=== PATIENT | female | born 1985 | race Caucasian/White ===

== ENCOUNTER 2018-02-06 08:00 | Outpatient (CLI) | payer MEDICAID | END 2018-02-06 23:59 | disposition home or self-care (01) | LOC: LAB.R 08:00 | PROVIDERS: ATTEND Nurse Practitioner Obstetrics & Gynecology | DX: N76.0 Acute vaginitis (principal) | CPT/HCPCS: 87480; 87510; 87660 ==

== ENCOUNTER 2018-03-15 16:32 | Outpatient (CLI) | payer MEDICAID ==
--- NOTE | 2018-03-16 11:57 | Ultrasound Report ---
Reason: TEST POSITIVE Procedure Date: 03/15/2018 Accession Number: [id number] / [id number] Procedure: US - OB First Trimester CPT Code: FULL RESULT: EXAM: FIRST TRIMESTER OBSTETRIC ULTRASOUND (Less than 11 weeks) EXAM DATE: 03/15/2018 05:16 PM. CLINICAL HISTORY: TEST POSITIVE. LMP: 01/26/2018. COMPARISONS: None. TECHNIQUE: Transabdominal and transvaginal ultrasound examination with static image documentation. CLINICAL DATES: EGA 6 weeks 6 days with GRAYSON 11/02/2018 based on LMP. ASSESSMENT: Gestational Sac: Single intrauterine. Embryo: CRL (crown-rump length) 2.7 mm = 5 weeks 6 days. Cardiac activity: 104 beats per minute. Yolk sac: 3.4 mm. Amniotic fluid: Not accurately assessed at this gestational age. Early placenta: Not visible at this gestational age. Other: No perigestational fluid collection demonstrated. MATERNAL STRUCTURES: Uterus: Anteverted. Unremarkable. Cervix: Closed. Right Ovary/Adnexa: The ovary measures 3 x 2.6 x 1.5 cm, volume 6.1 cc. Unremarkable. Left Ovary/Adnexa: The ovary measures 2.4 x 2.6 x 2.1 cm, volume 6.8 cc. Unremarkable. Free Fluid: None. Other: None. IMPRESSION: 1. Single viable intrauterine at EGA 5 weeks 6 days with GRAYSON 11/09/2018 based on crown-rump length, which is concordant (exactly 7 days) with clinical dates. 2. Assigned dating is GRAYSON 11/02/2018 based on LMP. 3. Both ovaries and adnexa are normal. RADIA
== END 2018-03-15 16:33 | disposition home or self-care (01) ==
LOC: DI 16:32
PROVIDERS: ATTEND Registered Nurse
DX: Z32.01 Encounter for pregnancy test, result positive (principal)
CPT/HCPCS: 76801; 76817

== ENCOUNTER 2018-04-06 18:44 | Emergency (ER) | payer MEDICAID ==
--- NOTE | 2018-04-06 18:59 | ED Physician Documentation ---
History of Present Illness - Stated complaint Stated Complaint: FEMALE - Chief complaint Chief Complaint: General - History obtained from History obtained from: Patient - History of Present Illness Timing: Today (G one P0 at 8 weeks 6 days gestation presents with vaginal spotting for the last few days and heavier bleeding tonight without cramping or pain. Her dates were confirmed by ultrasound about 2 weeks ago in the clinic where heart tones were noted. Blood type is unknown.) Review of Systems Ten Systems: 10 systems reviewed and negative Constitutional: denies: Fever, Chills GI: denies: Abdominal Pain, Nausea, Vomiting : denies: Dysuria, Frequency PD PAST MEDICAL HISTORY - Present Medications Home Medications: Ambulatory Orders Medication Instructions Recorded Confirmed Levothyroxine Sodium [Synthroid] 25 mcg PO QDAC 04/06/18 04/06/18 - Allergies Allergies/Adverse Reactions: Allergies Allergy/AdvReac Type Severity Reaction Status Date / Time codeine Allergy Nausea Verified 04/06/18 18:52 PD ED PE NORMAL - Vitals Vital signs reviewed: Yes - General General: Alert and oriented X 3, No acute distress - Cardiac Cardiac: RRR, No murmur - Respiratory Respiratory: No respiratory distress, Clear bilaterally - Abdomen Abdomen: Normal bowel sounds, Soft, Non tender - Female Female : Other (Bedside ultrasound demonstrates single intrauterine fetus without obvious heart tones.) - Back Back: No CVA TTP, No spinal TTP - Derm Derm: Normal color, Warm and dry - Extremities Extremities: No edema, No calf tenderness / cord - Neuro Neuro: Alert and oriented X 3, Normal speech - Psych Psych: Normal mood, Normal affect Results - Vitals Vitals: Vital Signs - 24 hr 04/06/18 04/06/18 18:47 20:10 Temperature 36.6 C Heart Rate 91 80 Respiratory 18 16 Rate Blood Pressure 122/74 113/69 O2 Saturation 98 99 Oxygen O2 Source Room air - Labs Labs: Laboratory Tests 04/06/18 04/06/18 04/06/18 19:10 20:05 20:05 WBC 6.5 RBC 4.12 L Hgb 13.4 Hct 39.7 MCV 96.3 MCH 32.6 H MCHC 33.8 RDW 12.2 Plt Count 248 MPV 7.5 L Neut # (Auto) 3.8 Lymph # (Auto) 2.0 [place] # (Auto) 0.6 Eos # (Auto) 0.0 Baso # (Auto) 0.0 Absolute Nucleated RBC 0.01 Nucleated RBC % 0.1 Sodium Potassium Chloride Carbon Dioxide Anion Gap BUN Creatinine Estimated GFR (MDRD) Glucose Calcium Urine Color YELLOW Urine Clarity CLEAR Urine pH 6.0 Ur Specific [place] 1.010 Urine Protein NEGATIVE Urine Glucose (UA) NEGATIVE Urine Ketones TRACE Urine Occult Blood SMALL H Urine Nitrite NEGATIVE Urine Bilirubin NEGATIVE Urine Urobilinogen 0.2 (NORMAL) Ur Leukocyte Esterase NEGATIVE Urine RBC 0-5 Urine WBC 0-3 Ur Squamous Epith Cells NONE SEEN Urine Bacteria None Seen Ur Microscopic Review INDICATED Urine Culture Comments NOT INDICATED Blood Type O POSITIVE 04/06/18 20:05 WBC RBC Hgb Hct MCV MCH MCHC RDW Plt Count MPV Neut # (Auto) Lymph # (Auto) [place] # (Auto) Eos # (Auto) Baso # (Auto) Absolute Nucleated RBC Nucleated RBC % Sodium 138 Potassium 3.4 L Chloride 104 Carbon Dioxide 24 Anion Gap 10.0 BUN 12 Creatinine 0.6 Estimated GFR (MDRD) 117 Glucose 90 Calcium 9.5 Urine Color Urine Clarity Urine pH Ur Specific [place] Urine Protein Urine Glucose (UA) Urine Ketones Urine Occult Blood Urine Nitrite Urine Bilirubin Urine Urobilinogen Ur Leukocyte Esterase Urine RBC Urine WBC Ur Squamous Epith Cells Urine Bacteria Ur Microscopic Review Urine Culture Comments Blood Type - Rads (name of study) OB SOno Radiology: EMP read contemporaneously (8w2d IUFD) PD MEDICAL DECISION MAKING - ED course ED course: 32-year-old presents at almost 9 weeks gestation with vaginal bleeding and no pain. I am unfortunately able to easily see the fetus on ultrasound and there is no heartbeat and this was confirmed a formal ultrasound. Her blood type was O+. I offered to call OB for potential medical management, but she prefers a natural approach. Departure - Departure Clinical Impression: IUFD at less than 20 weeks of gestation Condition: Good Record reviewed to determine appropriate education?: Yes Instructions: ED Miscarriage Incom Comments: Return for heavier bleeding, dizziness, significant pain. Your blood type is O+, there is no need for RhoGam shot. 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
[2018-04-06 19:24] LABS: BILIRUBIN,URINE NEGATIVE (NEGATIVE); GLUCOSE, URINE (UA) NEGATIVE (NEGATIVE); KETONES,URINE (UA) TRACE mg/dL (NEGATIVE); LEUKOCYTE ESTERASE, URINE NEGATIVE (NEGATIVE); NITRITE,URINE NEGATIVE (NEGATIVE); OCCULT BLOOD,URINE SMALL (NEGATIVE); PROTEIN,URINE NEGATIVE (NEGATIVE); UROBILINOGEN,URINE 0.2 (NORMAL) E.U./dL (NORMAL)
[2018-04-06 19:27] LABS: CLARITY,URINE CLEAR (CLEAR)
[2018-04-06 19:44] LABS: BACTERIA,URINE None Seen /HPF (None Seen); RBC,URINE 0-5 /HPF (0-5); SQUAMOUS EPITHELIAL CELL,UR NONE SEEN (<= Few)
[2018-04-06 20:15] VITALS: BP 113/69
--- NOTE | 2018-04-06 20:15 | Ultrasound Report ---
Reason: Vag bleed, I do not see FHT on bedside Procedure Date: 04/06/2018 Accession Number: [id number] / [id number] Procedure: US - OB First Trimester CPT Code: FULL RESULT: EXAM: FIRST TRIMESTER OBSTETRIC ULTRASOUND (LESS THAN 11 WEEKS). EXAM DATE: 04/06/2018 07:52 PM. CLINICAL HISTORY: Vaginal bleed, I do not see heart tones on bedside. LMP: 01/26/2018. COMPARISONS: None. TECHNIQUE: Transabdominal and transvaginal ultrasound examination with static image documentation. CLINICAL DATES: EGA 10 weeks 0 days with GRAYSON 02/18/2019 based on LMP. ASSESSMENT: Gestational Sac: Single intrauterine. Mean gestational sac diameter: 23.3 mm = 6 weeks 6 days. Embryo: CRL (crown-rump length) 17.9 mm = 8 weeks 2 days. Cardiac activity: Absent. Yolk sac: No yolk sac seen. Amniotic fluid: Not accurately assessed at this gestational age. Early placenta: Not visible at this gestational age. Other: No perigestational fluid collection demonstrated. MATERNAL STRUCTURES: Uterus: Anteverted. Unremarkable. Cervix: Closed. Right Ovary/Adnexa: The ovary measures 2.0 x 1.5 x 1.2 cm, volume 1.9 cc. Unremarkable. Left Ovary/Adnexa: The ovary measures 3.2 x 2.4 x 1.8 cm, volume 7.2 cc. Unremarkable. Free Fluid: None. Other: None. IMPRESSION: 1. demise at 8 weeks 2 days. RADIA
[2018-04-06 20:19] LABS: BASOPHILS % (AUTO) 0.5 %; EOSINOPHILS % (AUTO) 0.4 %; HGB - HEMOGLOBIN 13.4 g/dL (12.0-16.0); LYMPHOCYTES % (AUTO) 31.3 %; MEAN CORPUSCULAR HEMOGLOBIN 32.6 pg (27.0-31.0); MEAN CORPUSCULAR HGB CONC 33.8 g/dL (32.0-36.0); MEAN CORPUSCULAR VOLUME 96.3 fL (81.0-99.0); MEAN PLATELET VOLUME 7.5 fL (7.9-10.8); MONOCYTES # (AUTO) 0.6 10^3/uL (0.0-1.0); MONOCYTES % (AUTO) 9.1 %; NEUTROPHILS # (AUTO) 3.8 10^3/uL (1.5-6.6); NEUTROPHILS % (AUTO) 58.7 %; PLT - PLATELET COUNT 248 10^3/uL (130-450); RED BLOOD COUNT 4.12 10^6/uL (4.20-5.40); RED CELL DISTRIBUTION WIDTH 12.2 % (12.0-15.0); WHITE BLOOD COUNT 6.5 x10^3/uL (4.8-10.8)
[2018-04-06 20:20] LABS: CALCIUM 9.5 mg/dL (8.5-10.3); CREATININE 0.6 mg/dL (0.4-1.0)
== END 2018-04-06 21:00 | disposition home or self-care (01) ==
LOC: ED 18:44
DX: O02.1 Missed abortion (principal); Z3A.08 8 weeks gestation of pregnancy
CPT/HCPCS: 36415; 76801; 80048; 81001; 81003; 84702; 85025; 86900; 86901; 87086; 99283

== ENCOUNTER 2018-07-22 14:37 | Outpatient (CLI) | payer MEDICAID | END 2018-07-22 14:38 | disposition home or self-care (01) | LOC: LAB 14:37 | PROVIDERS: ATTEND Nurse Practitioner Obstetrics & Gynecology | DX: R10.2 Pelvic and perineal pain (principal); Z32.01 Encounter for pregnancy test, result positive | CPT/HCPCS: 36415; 84702 ==

== ENCOUNTER 2018-07-22 17:25 | Outpatient (CLI) | payer MEDICAID ==
--- NOTE | 2018-07-22 19:28 | Ultrasound Report ---
Reason: PELVIC PAIN ACUTE, TEST POSTITIVE Procedure Date: 07/22/2018 Accession Number: [id number] / [id number] Procedure: US - OB First Trimester CPT Code: FULL RESULT: EXAM: FIRST TRIMESTER OBSTETRIC ULTRASOUND (Less than 11 weeks) EXAM DATE: 07/22/2018 06:15 PM. CLINICAL HISTORY: Pelvic pain, acute; test positive. LMP: 07/14/2018. COMPARISONS: OB FIRST TRIMESTER 03/15/2018 4:43 PM. TECHNIQUE: Transabdominal and transvaginal ultrasound examination with static image documentation. CLINICAL DATES: EGA 2 weeks 4 days with GRAYSON 04/10/2019 based on LMP. ASSESSMENT: Gestational Sac: No intrauterine gestational sac seen. MATERNAL STRUCTURES: Uterus: Anteverted. Unremarkable. Cervix: Closed. Right Ovary/Adnexa: The ovary measures 3.6 x 1.8 x 2.2 cm, volume 7.3 cc. Unremarkable. Left Ovary/Adnexa: The ovary measures 3.3 x 3.4 x 2.7 cm, volume 15.9 cc. Contains a prominent 2.0 cm functional cyst. Free Fluid: None. Other: None. IMPRESSION: 1. Unremarkable pelvic ultrasound demonstrating no intrauterine or ectopic . Given early gestational age by provided dates, consider follow-up ultrasound in 4-6 weeks. RADIA ADDENDUM: 07/22/18 20:39 Results reviewed with Eloise Peña at 8:39 PM.
== END 2018-07-22 17:26 | disposition home or self-care (01) ==
LOC: DI 17:25
PROVIDERS: ATTEND Nurse Practitioner Obstetrics & Gynecology
DX: Z32.01 Encounter for pregnancy test, result positive (principal); R10.2 Pelvic and perineal pain
CPT/HCPCS: 36415; 76801; 84702

== ENCOUNTER 2018-07-24 14:08 | Outpatient (CLI) | payer MEDICAID | END 2018-07-24 14:09 | disposition home or self-care (01) | LOC: LAB.F 14:08 | PROVIDERS: ATTEND Nurse Practitioner Obstetrics & Gynecology | DX: R10.2 Pelvic and perineal pain (principal); Z32.01 Encounter for pregnancy test, result positive | CPT/HCPCS: 36415; 84702 ==

== ENCOUNTER 2018-08-01 15:16 | Outpatient (CLI) | payer MEDICAID ==
[2018-08-01 17:55] LABS: THYROID STIMULATING HORMONE 1.54 uIU/mL (0.34-5.60)
[2018-08-01 17:59] LABS: FREE T4 (FREE THYROXINE) 1.56 ng/dL (0.58-1.64)
== END 2018-08-01 15:17 | disposition home or self-care (01) ==
LOC: LAB.F 15:16
PROVIDERS: ATTEND Internal Medicine
DX: E03.9 Hypothyroidism, unspecified (principal); O03.9 Complete or unspecified spontaneous abortion without complication
CPT/HCPCS: 36415; 84439; 84443; 84481; 84702

== ENCOUNTER 2019-01-26 18:38 | Outpatient (CLI) | payer BC ==
[2019-01-26 19:10] LABS: BILIRUBIN,URINE NEGATIVE (NEGATIVE); GLUCOSE, URINE (UA) NEGATIVE (NEGATIVE); KETONES,URINE (UA) NEGATIVE (NEGATIVE); LEUKOCYTE ESTERASE, URINE NEGATIVE (NEGATIVE); NITRITE,URINE NEGATIVE (NEGATIVE); OCCULT BLOOD,URINE NEGATIVE (NEGATIVE); PH,URINE 5.5 PH (5.0-7.5); PROTEIN,URINE NEGATIVE (NEGATIVE); UROBILINOGEN,URINE 0.2 (NORMAL) E.U./dL (NORMAL)
[2019-01-26 19:14] LABS: CLARITY,URINE CLEAR (CLEAR); HCG UR QUAL NEGATIVE
[2019-01-26 21:01] LABS: PROLACTIN 17.33 ng/mL
[2019-01-26 21:24] LABS: FOLLICLE STIMULATING HORMONE 7.94 mIU/mL
[2019-01-26 22:01] LABS: HB2 TOTAL 13.4 g/dL; HEMOGLOBIN A1C 0.45 g/dL; HEMOGLOBIN A1C % 5.2 % (4.6-6.2)
[2019-01-28 04:51] LABS: ESTRADIOL 33 pg/mL
[2019-01-29 12:11] LABS: DHEA SULFATE 182 mcg/dL (23-266)
== END 2019-01-26 18:39 | disposition home or self-care (01) ==
LOC: LAB 18:38
PROVIDERS: ATTEND Obstetrics & Gynecology
DX: Z00.00 Encounter for general adult medical examination without abnormal findings (principal); Z71.89 Other specified counseling; N91.2 Amenorrhea, unspecified
CPT/HCPCS: 36415; 81003; 81025; 81599; 82627; 82670; 83001; 83036; 83498; 84146; 84403; 84443

== ENCOUNTER 2019-02-13 13:20 | Outpatient (CLI) | payer BC | END 2019-02-13 13:21 | disposition home or self-care (01) | LOC: LAB.S 13:20 | PROVIDERS: ATTEND Obstetrics & Gynecology | DX: Z00.00 Encounter for general adult medical examination without abnormal findings (principal); N91.2 Amenorrhea, unspecified | CPT/HCPCS: 36415; 81001; 81003; 81025; 81599; 82627; 82670; 83001; 83036; 83498; 84146; 84403; 84443 ==

== ENCOUNTER 2019-03-16 14:03 | Outpatient (CLI) | payer BC | END 2019-03-16 14:04 | disposition home or self-care (01) | LOC: LAB.S 14:03 | PROVIDERS: ATTEND Obstetrics & Gynecology | DX: Z31.69 Encounter for other general counseling and advice on procreation (principal) | CPT/HCPCS: 36415; 84443 ==

== ENCOUNTER 2019-06-08 11:21 | Outpatient (CLI) | payer BC | END 2019-06-08 11:22 | disposition home or self-care (01) | LOC: LAB.S 11:21 | PROVIDERS: ATTEND Obstetrics & Gynecology | DX: Z32.01 Encounter for pregnancy test, result positive (principal) | CPT/HCPCS: 36415; 84443; 84702 ==

== ENCOUNTER 2019-06-11 13:22 | Outpatient (CLI) | payer BC | END 2019-06-11 13:23 | disposition home or self-care (01) | LOC: LAB.S 13:22 | PROVIDERS: ATTEND Obstetrics & Gynecology | DX: Z32.01 Encounter for pregnancy test, result positive (principal) | CPT/HCPCS: 36415; 84702 ==

== ENCOUNTER 2019-06-13 11:20 | Outpatient (CLI) | payer BC ==
--- NOTE | 2019-06-14 01:56 | Ultrasound Report ---
Reason: POSITIVE TEST Procedure Date: 06/13/2019 Accession Number: [id number] / [id number] Procedure: US - OB First Trimester CPT Code: Final Report FULL RESULT: EXAM: FIRST TRIMESTER OBSTETRIC ULTRASOUND (Less than 11 weeks) EXAM DATE: 06/13/2019 12:28 PM. CLINICAL HISTORY: POSITIVE TEST. LMP: 04/20/2019. COMPARISONS: OB FIRST TRIMESTER 07/22/2018 5:47 PM. TECHNIQUE: Transabdominal and transvaginal ultrasound examination with static image documentation. CLINICAL DATES: EGA 7 weeks and 5 days with GRAYSON 01/25/2020 based on LMP. ASSESSMENT: Gestational Sac: Single intrauterine. Mean gestational sac diameter: 14 mm = 6 weeks and 2 days. Embryo: CRL (crown-rump length) 5 mm = 6 weeks and 2 days. Cardiac activity: Not yet visible at this early gestational age. Yolk sac: 5 mm. Amniotic fluid: Not accurately assessed at this gestational age. Early placenta: Not visible at this gestational age. Other: 2.1 x 0.3 x 1.3 cm perigestational heterogeneous material.. MATERNAL STRUCTURES: Uterus: Anteverted. Unremarkable. Cervix: Closed. Right Ovary/Adnexa: The ovary measures 3.4 x 2.6 x 3.1 cm, volume 14.3 cc. Unremarkable. Corpus luteum cyst. Left Ovary/Adnexa: The ovary measures 1.8 x 1.5 x 2.4 cm, volume 3.2 cc. Unremarkable. Free Fluid: None. Other: None. IMPRESSION: 1. Single viable intrauterine at EGA 6 weeks and 2 days with GRAYSON 02/04/2020 based on crown-rump length, which is discrepant with clinical dates. 2. Assigned dating is GRAYSON 02/04/2020 based on current ultrasound. 3. 2.1 x 0.3 x 1.3 cm perigestational heterogeneous material, which likely reflects subchorionic hemorrhage. RADIA
== END 2019-06-13 11:21 | disposition home or self-care (01) ==
LOC: DI 11:20
PROVIDERS: ATTEND Obstetrics & Gynecology
DX: Z36.89 Encounter for other specified antenatal screening (principal)
CPT/HCPCS: 76801

== ENCOUNTER 2019-06-15 13:02 | Outpatient (CLI) | payer BC | END 2019-06-15 13:03 | disposition home or self-care (01) | LOC: LAB.S 13:02 | PROVIDERS: ATTEND Obstetrics & Gynecology | DX: Z32.01 Encounter for pregnancy test, result positive (principal) | CPT/HCPCS: 36415; 84702 ==

== ENCOUNTER 2019-06-26 09:00 | Outpatient (CLI) | payer BC ==
--- NOTE | 2019-06-27 10:07 | Ultrasound Report ---
Reason: POSITIVE TEST Procedure Date: 06/26/2019 Accession Number: [id number] / [id number] Procedure: US - OB First Trimester CPT Code: Final Report FULL RESULT: EXAM: FIRST TRIMESTER OBSTETRIC ULTRASOUND (Less than 11 weeks) EXAM DATE: 06/26/2019 09:09 AM. CLINICAL HISTORY: Positive test. Assess viability. LMP: 04/20/2019. COMPARISONS: OB FIRST TRIMESTER 06/13/2019 11:38 AM. TECHNIQUE: Transabdominal and transvaginal ultrasound examination with static image documentation. CLINICAL DATES: EGA 8 weeks 1 day with GRAYSON 02/04/2020 based on first ultrasound, 06/13/2019. ASSESSMENT: Gestational Sac: Single intrauterine. Mean gestational sac diameter: 17.2 mm = 6 weeks 4 days. Embryo: CRL (crown-rump length) 5.3 mm = 6 weeks 2 days. Cardiac activity: 0 beats per minute. Yolk sac: Not identified. Amniotic fluid: Not accurately assessed at this gestational age. Early placenta: Not visible at this gestational age. Other: There is a small perigestational fluid collection measuring 8 x 6 x 6 mm. MATERNAL STRUCTURES: Uterus: Anteverted/Retroverted. Unremarkable. Cervix: Closed. Right Ovary/Adnexa: The ovary measures 3.5 x 2.5 x 2.4 cm, volume 10.9 cc. There is a small cyst in the right ovary. Left Ovary/Adnexa: The ovary measures 2.3 x 1.8 x 2.1 cm, volume 4.5 cc. Unremarkable. Free Fluid: None. Other: None. IMPRESSION: 1. Single intrauterine gestation with crown-rump length corresponding with a 6 week 2 day gestation, which is discordant with the first ultrasound. There is no cardiac activity, and no visible yolk sac, 14 days post the first ultrasound on 06/13/2019. The findings are consistent with a nonviable . RADIA
--- NOTE | 2019-06-30 07:28 | Ultrasound Report ---
Reason: TEST POSITIVE Procedure Date: 06/26/2019 Accession Number: [id number] / [id number] Procedure: US - OB Transvaginal CPT Code: Final Report FULL RESULT: EXAM: FIRST TRIMESTER OBSTETRIC ULTRASOUND (Less than 11 weeks) EXAM DATE: 06/26/2019 09:09 AM. CLINICAL HISTORY: Positive test. Assess viability. LMP: 04/20/2019. COMPARISONS: OB FIRST TRIMESTER 06/13/2019 11:38 AM. TECHNIQUE: Transabdominal and transvaginal ultrasound examination with static image documentation. CLINICAL DATES: EGA 9 weeks 4 days with GRAYSNO 01/25/2020 based on LMP. ASSESSMENT: Gestational Sac: Solitary. Mean gestational sac diameter: 17.2 mm = 6 weeks 4 days. Embryo: CRL (crown-rump length) 5.3 mm = 6 weeks 2 days. GRAYSON 02/17/2020. Cardiac activity: 0 beats per minute. Yolk sac: Not present. Amniotic fluid: Not accurately assessed at this gestational age. Early placenta: Not visible at this gestational age. Other: There is a 0.6 x 0.8 x 0.6 cm perigestational fluid collection. MATERNAL STRUCTURES: Uterus: Anteverted. Unremarkable. Cervix: Closed. Right Ovary/Adnexa: The ovary measures 3.5 x 2.5 x 2.4 cm, volume 10.9 cc. There is a 1.3 cm diameter simple cyst. Left Ovary/Adnexa: The ovary measures 2.3 x 1.8 x 2.1 cm, volume 4.5 cc. Unremarkable. Free Fluid: None. Other: None. IMPRESSION: 1. Single intrauterine gestation measuring 6 weeks and 2 days, without cardiac activity. Scan performed 13 days after an initial scan demonstrating a 6 week 2 day gestation with a yolk sac. The findings are consistent with a nonviable . RADIA
== END 2019-06-26 09:01 | disposition home or self-care (01) ==
LOC: DI 09:00
PROVIDERS: ATTEND Obstetrics & Gynecology
DX: Z32.01 Encounter for pregnancy test, result positive (principal)
CPT/HCPCS: 76801; 76817

== ENCOUNTER 2019-08-12 10:47 | Outpatient (CLI) | payer BC ==
[2019-08-12 12:16] LABS: HB2 TOTAL 14.3 g/dL; HEMOGLOBIN A1C 0.43 g/dL; HEMOGLOBIN A1C % 4.9 % (4.6-6.2)
== END 2019-08-12 10:48 | disposition home or self-care (01) ==
LOC: LAB 10:47
PROVIDERS: ATTEND Obstetrics & Gynecology
DX: N96 Recurrent pregnancy loss (principal)
CPT/HCPCS: 36415; 81240; 81241; 81599; 82306; 83036; 84146; 84443; 85300; 85306; 85307; 85613; 85730; 86146; 86147; 86376; 86800

== ENCOUNTER 2019-09-28 18:39 | Outpatient (CLI) | payer BC ==
[2019-09-28 21:38] LABS: FOLLICLE STIMULATING HORMONE 10.31 mIU/mL
[2019-09-30 11:16] LABS: ESTRADIOL 50 pg/mL
== END 2019-09-28 18:40 | disposition home or self-care (01) ==
LOC: LAB 18:39
PROVIDERS: ATTEND Obstetrics & Gynecology
DX: N96 Recurrent pregnancy loss (principal)
CPT/HCPCS: 81599; 82670; 83001; 83520; 84443; 86762; 86787

== ENCOUNTER 2019-11-17 16:54 | Outpatient (CLI) | payer BC ==
--- NOTE | 2019-11-18 16:07 | Ultrasound Report ---
PROCEDURE: OB Transvaginal INDICATIONS: EARLY OUTSIDE/PRIOR DATING DATA: Last menstrual period (LMP): 09/25/2019. LMP-based estimated date of delivery (GRAYSON): 07/01/2020. First dating scan (date and location): 11/17/2019. Estimated date of delivery (GRAYSON) from first dating scan: 07/11/2020. TECHNIQUE: Real-time scanning was performed of the fetus and maternal pelvic organs, with image documentation. Endovaginal scanning was also performed to better visualize the fetus and maternal ovaries. COMPARISON: None FINDINGS: Embryo: Single live intrauterine is identified with heart rate of 100 per minute. Cr own-rump length measures 4 mm corresponding to 6 weeks 1 day. Small focus of subchorionic hemorrhage is present measuring 21 x 7 x 6 mm. Measurement variability in dating: +/- 4 weeks by LMP, +/- 7 days by mean sac diameter (use before 6 weeks gestation if crown-rump length not able to be measured), +/- 5 days by crown-rump length (6-12 weeks gestation). Maternal organs: Ovaries are unremarkable except noting a left corpus luteal cyst measuring 20 x 18 x 23 mm.. Limited images through the kidneys demonstrate no hydronephrosis. IMPRESSION: 1. Single live intrauterine with ultrasound gestational age of 6 weeks 1 day corresponding to ultrasound GRAYSON of 07/20/2020 2. Recommend follow-up imaging at 20-22 weeks for dates and anatomy. Reviewed by: Krysten Moon MD on 11/18/2019 4:05 PM PDT Approved by: Krysten Moon MD on 11/18/2019 4:05 PM PDT Station ID: [id number]
== END 2019-11-17 16:55 | disposition home or self-care (01) ==
LOC: DI 16:54
PROVIDERS: ATTEND Obstetrics & Gynecology Reproductive Endocrinology
DX: O09.511 Supervision of elderly primigravida, first trimester (principal); Z3A.01 Less than 8 weeks gestation of pregnancy
CPT/HCPCS: 76817

== ENCOUNTER 2019-11-26 16:21 | Outpatient (CLI) | payer BC | END 2019-11-26 16:22 | disposition home or self-care (01) | LOC: LAB.S 16:21 | PROVIDERS: ATTEND Advanced Practice Midwife | DX: O26.20 Pregnancy care for patient with recurrent pregnancy loss, unspecified trimester (principal) | CPT/HCPCS: 36415; 84702 ==

== ENCOUNTER 2019-12-09 14:09 | Outpatient (CLI) | payer BC ==
--- NOTE | 2019-12-09 16:09 | Ultrasound Report ---
PROCEDURE: OB Transvaginal INDICATIONS: RECURRENT LOSS, THREATENED OUTSIDE/PRIOR DATING DATA: Last menstrual period (LMP): 09/25/2019. LMP-based estimated date of delivery (GRAYSON): 07/01/2020. First dating scan (date and location): 11/17/2019. Estimated date of delivery (GRAYSON) from first dating scan: 07/11/2020. TECHNIQUE: Real-time scanning was performed of the fetus and maternal pelvic organs, with image documentation. COMPARISON: OB ultrasound 06/13/2019, 06/26/2019, 11/17/2019 FINDINGS: Embryo: Single intrauterine is identified without identifiable heart tones. The gest ational sac has become mildly deformed as well as the pole. Subchorionic hemorrhage is noted in the fundal and inferior portions of the uterus measuring 6 x 6 x 17 mm and 10 x 5 x 15 mm respective ly. Ultrasound gestational age today measures 7 weeks 1 day compared to 9 weeks 2 days based on initi al ultrasound. Measurement variability in dating: +/- 4 weeks by LMP, +/- 7 days by mean sac diameter (use before 6 weeks gestation if crown-rump length not able to be measured), +/- 5 days by crown-rump length (6-12 weeks gestation). Maternal organs: Ovaries are unremarkable. Limited images through the kidneys demonstrate no hydron ephrosis. IMPRESSION: 1. Ill-defined gestational sac as well as pole measuring small for gestational age. In addition , no heart tones are identified most consistent with demise. Reviewed by: Krysten Moon MD on 12/09/2019 4:08 PM PDT Approved by: Krysten Moon MD on 12/09/2019 4:08 PM PDT Station ID: [id number]
--- NOTE | 2019-12-09 16:09 | Ultrasound Report ---
PROCEDURE: OB First Trimester INDICATIONS: RECURRENT LOSS, THREATENED OUTSIDE/PRIOR DATING DATA: Last menstrual period (LMP): 09/25/2019. LMP-based estimated date of delivery (GRAYSON): 07/01/2020. First dating scan (date and location): 11/17/2019. Estimated date of delivery (GRAYSON) from first dating scan: 07/11/2020. TECHNIQUE: Real-time scanning was performed of the fetus and maternal pelvic organs, with image documentation. COMPARISON: OB ultrasound 06/13/2019, 06/26/2019, 11/17/2019 FINDINGS: Embryo: Single intrauterine is identified without identifiable heart tones. The gest ational sac has become mildly deformed as well as the pole. Subchorionic hemorrhage is noted in the fundal and inferior portions of the uterus measuring 6 x 6 x 17 mm and 10 x 5 x 15 mm respective ly. Ultrasound gestational age today measures 7 weeks 1 day compared to 9 weeks 2 days based on initi al ultrasound. Measurement variability in dating: +/- 4 weeks by LMP, +/- 7 days by mean sac diameter (use before 6 weeks gestation if crown-rump length not able to be measured), +/- 5 days by crown-rump length (6-12 weeks gestation). Maternal organs: Ovaries are unremarkable. Limited images through the kidneys demonstrate no hydron ephrosis. IMPRESSION: 1. Ill-defined gestational sac as well as pole measuring small for gestational age. In addition , no heart tones are identified most consistent with demise. Reviewed by: Krysten Moon MD on 12/09/2019 4:07 PM PDT Approved by: Krysten Moon MD on 12/09/2019 4:07 PM PDT Station ID: [id number]
== END 2019-12-09 14:10 | disposition home or self-care (01) ==
LOC: DI 14:09
PROVIDERS: ATTEND Obstetrics & Gynecology
DX: O28.3 Abnormal ultrasonic finding on antenatal screening of mother (principal); Z3A.01 Less than 8 weeks gestation of pregnancy
CPT/HCPCS: 76801; 76817

== ENCOUNTER 2020-12-07 16:35 | Outpatient (CLI) | payer BC | END 2020-12-07 16:36 | disposition home or self-care (01) | LOC: LAB.S 16:35 | PROVIDERS: ATTEND Obstetrics & Gynecology Reproductive Endocrinology | DX: Z32.00 Encounter for pregnancy test, result unknown (principal) | CPT/HCPCS: 36415; 84702 ==

== ENCOUNTER 2020-12-09 15:07 | Outpatient (CLI) | payer BC | END 2020-12-09 15:08 | disposition home or self-care (01) | LOC: LAB.S 15:07 | PROVIDERS: ATTEND Obstetrics & Gynecology Reproductive Endocrinology | DX: Z32.00 Encounter for pregnancy test, result unknown (principal); Z13.29 Encounter for screening for other suspected endocrine disorder | CPT/HCPCS: 36415; 84443; 84702 ==

== ENCOUNTER 2021-01-17 08:00 | Outpatient (CLI) | payer BC ==
[2021-01-18 12:25] LABS: BILIRUBIN,URINE NEGATIVE (NEGATIVE); GLUCOSE, URINE (UA) NEGATIVE (NEGATIVE); KETONES,URINE (UA) NEGATIVE (NEGATIVE); LEUKOCYTE ESTERASE, URINE NEGATIVE (NEGATIVE); NITRITE,URINE NEGATIVE (NEGATIVE); OCCULT BLOOD,URINE NEGATIVE (NEGATIVE); PROTEIN,URINE NEGATIVE (NEGATIVE); UROBILINOGEN,URINE 0.2 (NORMAL) E.U./dL (NORMAL)
[2021-01-18 12:55] LABS: BACTERIA,URINE None Seen /HPF (None Seen); CLARITY,URINE CLEAR (CLEAR); RBC,URINE None Seen /HPF (0-5); SQUAMOUS EPITHELIAL CELL,UR RARE Squamous (<= Few); WBC,URINE 0-3 /HPF (0-5)
[2021-01-18 21:07] LABS: CHLAMYDIA TRACHOMATIS DNA NEGATIVE (NEGATIVE); NEISSERIA GONORRHOEAE DNA NEGATIVE (NEGATIVE); TRICHOMONAS VAGINALIS DNA NEGATIVE (NEGATIVE)
== END 2021-01-17 11:55 | disposition home or self-care (01) ==
LOC: LAB.WC 08:00
PROVIDERS: ATTEND Obstetrics & Gynecology
DX: Z34.90 Encounter for supervision of normal pregnancy, unspecified, unspecified trimester (principal); Z36.89 Encounter for other specified antenatal screening
CPT/HCPCS: 81001; 87086; 87491; 87591; 87661

== ENCOUNTER 2021-01-31 13:50 | Outpatient (CLI) | payer BC ==
[2021-01-31 14:35] LABS: BILIRUBIN,URINE NEGATIVE (NEGATIVE); GLUCOSE, URINE (UA) NEGATIVE (NEGATIVE); KETONES,URINE (UA) NEGATIVE (NEGATIVE); LEUKOCYTE ESTERASE, URINE NEGATIVE (NEGATIVE); NITRITE,URINE NEGATIVE (NEGATIVE); OCCULT BLOOD,URINE NEGATIVE (NEGATIVE); PROTEIN,URINE NEGATIVE (NEGATIVE); UROBILINOGEN,URINE 0.2 (NORMAL) E.U./dL (NORMAL)
[2021-01-31 14:44] LABS: BASOPHILS % (AUTO) 0.3 %; EOSINOPHILS % (AUTO) 0.4 %; HCT - HEMATOCRIT 33.9 % (37.0-47.0); LYMPHOCYTES # (AUTO) 1.9 10^3/uL (1.5-3.5); LYMPHOCYTES % (AUTO) 20.1 %; MEAN CORPUSCULAR HGB CONC 35.4 g/dL (32.0-36.0); MEAN CORPUSCULAR VOLUME 93.1 fL (81.0-99.0); MEAN PLATELET VOLUME 9.3 fL (7.9-10.8); MONOCYTES # (AUTO) 0.7 10^3/uL (0.0-1.0); MONOCYTES % (AUTO) 6.9 %; NEUTROPHILS # (AUTO) 6.9 10^3/uL (1.5-6.6); PLT - PLATELET COUNT 274 10^3/uL (130-450); RED BLOOD COUNT 3.64 10^6/uL (4.20-5.40); RED CELL DISTRIBUTION WIDTH 12.7 % (12.0-15.0); WHITE BLOOD COUNT 9.6 x10^3/uL (4.8-10.8)
[2021-01-31 14:47] LABS: CLARITY,URINE CLEAR (CLEAR)
[2021-02-01 09:21] LABS: HEPATITIS C ANTIBODY NON-REACTIVE (NON-REACTIVE)
[2021-02-01 09:22] LABS: HEPATITIS B SURFACE ANTIGEN NON-REACTIVE (NON-REACTIVE)
[2021-02-01 14:06] LABS: HIV AG/AB 4TH GEN NON-REACTIVE (NON-REACTIVE)
== END 2021-01-31 13:51 | disposition home or self-care (01) ==
LOC: LAB 13:50
PROVIDERS: ATTEND Obstetrics & Gynecology
DX: Z34.90 Encounter for supervision of normal pregnancy, unspecified, unspecified trimester (principal); Z36.89 Encounter for other specified antenatal screening
CPT/HCPCS: 36415; 81001; 81003; 85025; 86592; 86762; 86787; 86803; 86850; 86900; 86901; 87086; 87340; 87389

== ENCOUNTER 2021-02-01 17:03 | Outpatient (CLI) | payer BC ==
--- NOTE | 2021-02-02 09:08 | Ultrasound Report ---
PROCEDURE: OB First Trimester INDICATIONS: + PREG TEST OUTSIDE/PRIOR DATING DATA: Last menstrual period (LMP): November 04, 2020. LMP-based estimated date of delivery (GRAYSON): August 11, 2021. First dating scan (date and location): [facility]; February 01, 2021. Estimated date of delivery (GRAYSON) from first dating scan: August 07, 2021. The below data below was generated using the ultrasound GRAYSON of August 07, 2021 TECHNIQUE: Real-time scanning was performed of the fetus and maternal pelvic organs, with image documentation. COMPARISON: None. FINDINGS: Embryo: The mean crown rump length measures 7.1 cm, compatible with a 13 week, 2 day gestation. Heart rate: 153 bpm Measurement variability in dating: +/- 4 weeks by LMP, +/- 7 days by mean sac diameter (use before 6 weeks gestation if crown-rump length not able to be measured), +/- 5 days by crown-rump length (6-12 weeks gestation). Maternal organs: A hypoechoic lesion within the right ovary, measuring up to 2.6 cm, compatible with a corpus luteum. IMPRESSION: Live single intrauterine gestation as detailed above. Reviewed by: Anders Muro MD on 02/02/2021 9:07 AM PDT Approved by: Anders Muro MD on 02/02/2021 9:07 AM PDT Station ID: [id number]
== END 2021-02-01 17:04 | disposition home or self-care (01) ==
LOC: DI 17:03
PROVIDERS: ATTEND Obstetrics & Gynecology
DX: Z32.01 Encounter for pregnancy test, result positive (principal)

== ENCOUNTER 2021-02-09 15:05 | Outpatient (CLI) | payer BC ==
[2021-02-09 20:16] LABS: % IRON SATURATION 24 % (20-50); IRON 87 ug/dL (28-170); TOTAL IRON BINDING CAPACITY 363 ug/dL (250-450); TRANSFERRIN 259 mg/dL (192-382)
== END 2021-02-09 15:06 | disposition home or self-care (01) ==
LOC: LAB.S 15:05
PROVIDERS: ATTEND Obstetrics & Gynecology
DX: O99.019 Anemia complicating pregnancy, unspecified trimester (principal)
CPT/HCPCS: 36415; 81599; 82728; 83020; 83021; 83540; 84466; 85014; 85018; 85041

== ENCOUNTER 2021-04-18 08:00 | Outpatient (CLI) | payer BC | END 2021-04-18 23:59 | disposition home or self-care (01) | LOC: LAB.S 08:00 | PROVIDERS: ATTEND Emergency Medicine | DX: J02.9 Acute pharyngitis, unspecified (principal); Z20.822 Contact with and (suspected) exposure to COVID-19 ==

== ENCOUNTER 2021-04-26 18:57 | Outpatient (CLI) | payer BC ==
--- NOTE | 2021-04-27 12:12 | Ultrasound Report ---
PROCEDURE: OB Detailed Eval INDICATIONS: SUPERVISION OF OUTSIDE/PRIOR DATING DATA: Last menstrual period (LMP): 11/04/2020. LMP-based estimated date of delivery (GRAYSON): 08/11/2021. First dating scan (date and location): 02/01/2021. Estimated date of delivery (GRAYSON) from first dating scan: 08/07/2021. The below data below was generated using the ultrasound GRAYSON of 08/07/2021 TECHNIQUE: Real-time scanning was performed of the fetus, with image documentation and biometric measurements. Endovaginal scanning: Not performed COMPARISON: None. FINDINGS: General: A single living intrauterine gestation is present. Presentation: Breech Placenta: Placental position is posterior, without previa. Amniotic fluid index: 20.6 cm with largest vertical pocket measuring 5.9 cm. heart rate: 132 beats per minute. Maternal cervical canal: 4.0 cm long; normal length is 2.5 cm or more. biometrics: Biparietal diameter: 6.3 cm, correlating with 25 weeks and 4 days Head circumference: 23.5 cm, correlating with 25 weeks and 4 days Abdominal circumference: 20.2 cm, correlating with 24 weeks and 6 days Femur length: 4.49 cm, correlating with 24 weeks and 6 days Estimated gestational age from initial scan: 25 weeks and 2 days. Composite gestational age from present scan: 25 weeks and 1 day Estimated weight and percentile: 753 g which correlates with the 26th percentile for gestation al age. Measurement variability in biometric dating: +/- 10 days from 12-20 weeks gestation, +/- 2 weeks from 20-30 weeks gestation, +/- 3 weeks at 30 weeks gestation or later. Anatomic survey: Neuro: Ventricles are normal at less than 10 mm. Cisterna magna is normal at 3-11 mm. Cerebellum i s normal in size and morphology. Nuchal skin fold: Normal at less than 6 mm between 14 and 20 weeks gestational age. Face: Nose and lips, facial profile are normal. Spine: No evidence for spina bifida. Heart: 4-chambered heart is present, with normal ventricular outflow tracts. Diaphragm: Diaphragm is intact. Stomach: Left-sided stomach is present. Kidneys: No hydronephrosis. Normal is less than 5 mm in 2nd trimester, less than 7 mm in 3rd trimester. Cord: 3 vessel cord has orthotopic insertion. Bladder: Normal in size. Extremities: All 4 extremities are visualized. IMPRESSION: Single living intrauterine gestation with estimated sonographic gestational age of approximately 25 w eeks and 1 day. Estimated date of delivery is approximately 08/07/2021. Estimated weight of 753 g which correlates with approximately the 26th percentile for gestational age. Otherwise, unremarkable routine second trimester anatomic screening survey. Reviewed by: Salbador Romero MD on 04/27/2021 12:10 PM PST Approved by: Salbador Romero MD on 04/27/2021 12:10 PM PST Station ID: [id number]
== END 2021-04-26 18:58 | disposition home or self-care (01) ==
LOC: DI 18:57
PROVIDERS: ATTEND Obstetrics & Gynecology
DX: Z34.92 Encounter for supervision of normal pregnancy, unspecified, second trimester (principal); Z3A.25 25 weeks gestation of pregnancy

== ENCOUNTER 2021-05-22 13:02 | Outpatient (CLI) | payer BC ==
[2021-05-22 20:16] LABS: HCT - HEMATOCRIT 34.5 % (37.0-47.0); HGB - HEMOGLOBIN 11.9 g/dL (12.0-16.0); MEAN CORPUSCULAR HGB CONC 34.5 g/dL (32.0-36.0); MEAN CORPUSCULAR VOLUME 98.6 fL (81.0-99.0); MEAN PLATELET VOLUME 9.6 fL (7.9-10.8); RED BLOOD COUNT 3.5 10^6/uL (4.20-5.40); RED CELL DISTRIBUTION WIDTH 12.6 % (12.0-15.0); WHITE BLOOD COUNT 11.4 x10^3/uL (4.8-10.8)
== END 2021-05-22 13:03 | disposition home or self-care (01) ==
LOC: LAB.S 13:02
PROVIDERS: ATTEND Obstetrics & Gynecology
DX: Z34.90 Encounter for supervision of normal pregnancy, unspecified, unspecified trimester (principal); Z36.89 Encounter for other specified antenatal screening
CPT/HCPCS: 36415; 82950; 85027

== ENCOUNTER 2021-06-07 08:30 | Outpatient (CLI) | payer BC ==
[2021-06-07 08:58] LABS: GTT GLUCOSE,FASTING 82 mg/dL (70-100)
== END 2021-06-07 08:31 | disposition home or self-care (01) ==
LOC: LAB 08:30
PROVIDERS: ATTEND Obstetrics & Gynecology
DX: O99.810 Abnormal glucose complicating pregnancy (principal); Z36.89 Encounter for other specified antenatal screening
CPT/HCPCS: 36415; 82951; 82952

== ENCOUNTER 2021-07-03 07:09 | Outpatient (CLI) | payer BC ==
[2021-07-03 07:58] LABS: BASOPHILS % (AUTO) 0.2 %; EOSINOPHILS % (AUTO) 0.3 %; HCT - HEMATOCRIT 33.2 % (37.0-47.0); HGB - HEMOGLOBIN 11.8 g/dL (12.0-16.0); LYMPHOCYTES # (AUTO) 1.5 10^3/uL (1.5-3.5); MEAN CORPUSCULAR HEMOGLOBIN 34.3 pg (27.0-31.0); MEAN CORPUSCULAR HGB CONC 35.5 g/dL (32.0-36.0); MEAN CORPUSCULAR VOLUME 96.5 fL (81.0-99.0); MEAN PLATELET VOLUME 8.9 fL (7.9-10.8); MONOCYTES # (AUTO) 0.9 10^3/uL (0.0-1.0); MONOCYTES % (AUTO) 9.9 %; NEUTROPHILS # (AUTO) 6.7 10^3/uL (1.5-6.6); NEUTROPHILS % (AUTO) 73.3 %; PLT - PLATELET COUNT 239 10^3/uL (130-450); RED BLOOD COUNT 3.44 10^6/uL (4.20-5.40); RED CELL DISTRIBUTION WIDTH 13.3 % (12.0-15.0); WHITE BLOOD COUNT 9.1 x10^3/uL (4.8-10.8)
[2021-07-03] MEDS ORDERED: LACTATED RINGERS 1,000 ML IV ONE (08:08)
[2021-07-03 08:50] VITALS: BP 113/69
--- NOTE | 2021-07-03 10:57 | Ultrasound Report ---
PROCEDURE: OB Limited INDICATIONS: abd trauma from fall OUTSIDE/PRIOR DATING DATA: Last menstrual period (LMP): 11/04/2020. LMP-based estimated date of delivery (GRAYSON): 08/11/2021. First dating scan (date and location): 02/01/2021. Estimated date of delivery (GRAYSON) from first dating scan: 08/07/2021. The below data below was generated using the study generated GRAYSON of 08/07/2021 TECHNIQUE: Real-time scanning was performed of the fetus, with image documentation. Endovaginal scanning: Not indicated COMPARISON: 02/01/2021, 04/26/2021 FINDINGS: A single living intrauterine gestation is present. Presentation: Vertex. Placenta: Placental position is posterior, without previa. Amniotic fluid index: 16.8 cm, normal for gestational age. heart rate: 137 beats per minutes. Maternal cervical canal: 3.7 cm long and is closed; normal length is 2.5 cm or more. Estimated gestational age from initial scan: 35 weeks, 0 day. stomach, chest, bilateral kidneys and urinary bladder are visualized and are within normal limi ts.. IMPRESSION: 1. Single live intrauterine gestation with fetus in vertex presentation. heart rate is 137 bpm. Normal amount of amniotic fluid. TAHIRA equals 16.8 cm. Largest pocket is 5.1 cm. 2. Placenta location is posterior, no placenta previa. No signs of placental abruption. Cervix is debora sed and measures 3.7 cm in length. Reviewed by: Zac Barfield MD on 07/03/2021 10:56 AM PDT Approved by: Zac Barfield MD on 07/03/2021 10:56 AM PDT Station ID: [id number]
--- NOTE | 2021-07-03 11:00 | PROVIDER PROGRESS NOTE ---
- HPI Chief Complaint: Maternal trauma Current : Current EDU 08/11/21 Gestation 34 Weeks and 3 Days 5 Para 0 Vital Signs Temperature 98.2 F 07/03/21 07:34 Heart Rate 91 07/03/21 07:34 Respiratory Rate 20 07/03/21 07:34 Blood Pressure 113/69 07/03/21 07:34 O2 Saturation 99 07/03/21 07:34 Temperature 98.2 F 07/03/21 07:34 Heart Rate 91 07/03/21 07:34 Respiratory Rate 20 07/03/21 07:34 Blood Pressure 113/69 07/03/21 07:34 O2 Saturation 99 07/03/21 07:34 - Exam GEN: NAD CV: Regular rate Resp: Breathing unlabored Abd: soft, nt, no bruising noted Ext: nt - Procedures OB Procedure Performed: NST Diagnosis/Indication for NST: Other (Maternal trauma- fall to abdomen) NST Procedure: NST Procedure Start Date 07/03/21 Start Time 07:25 Stop Time 07:50 Vibroacoustic Stimulation Used No Patient States Movement Yes EFM: 140s, moderate variability, positive accelerations 15x15, no decelerations [place]: irregular contractions NST reactive and reassuring - Plan Plan: 35yo at 34.3w with reactive NST, no evidence of abruption - Patient s/p fall to her abdomen this am after tripping at home. Currently denies pain. Has been chrissy for few weeks, not increasing in frequency or intensity. Denies vaginal bleeding or leaking fluid. Good movement. She feels reassured and is comfortable going home. - Benign CBC and fibrinogen revewed. - US reviewed, no evidence of abruption. Cervix closed - Extended monitoring reassuring - Discharge to home, follow up as scheduled with primary OB this week
== END 2021-07-03 11:44 | disposition home or self-care (01) ==
LOC: WFO 07:09 → FBP 07:12 → WFO 11:44
PROVIDERS: ATTEND Obstetrics & Gynecology
DX: Z03.79 Encounter for other suspected maternal and fetal conditions ruled out (principal)
CPT/HCPCS: 36415; 59025; 76815; 85025; 85384; 96360; 99215; J7120

== ENCOUNTER 2021-07-11 18:40 | Outpatient (CLI) | payer BC ==
--- NOTE | 2021-07-12 12:54 | Ultrasound Report ---
PROCEDURE: OB F/U or Repeat INDICATIONS: GESTATIONAL DIABETES OUTSIDE/PRIOR DATING DATA: Last menstrual period (LMP): 11/04/2020. LMP-based estimated date of delivery (GRAYSON): 08/11/2021. First dating scan (date and location): 02/01/2021. Estimated date of delivery (GRAYSON) from first dating scan: 08/07/2021. The below data below was generated using the ultrasound GRAYSON of TECHNIQUE: Real-time scanning was performed of the fetus, with image documentation and biometric measurements. Endovaginal scanning: Performed COMPARISON: 02/01/2021 and 04/26/2021. FINDINGS: General: A single living intrauterine gestation is present. Presentation: Vertex Placenta: Placental position is posterior, without previa. Amniotic fluid index: 16.9 cm, normal is 5-24 cm. Largest amniotic fluid pocket 4.9 cm. heart rate: 147 beats per minute. Maternal cervical canal: Not imaged biometrics: Biparietal diameter: 34 weeks 5 days Head circumference: 36 weeks 2 days Abdominal circumference: 35 weeks 0 days Femur length: 35 weeks 0 days Estimated gestational age from initial scan: 36 weeks 1 day Composite gestational age from present scan: 35 weeks 2 days Estimated weight and percentile: 2592 g; 24th percentile Measurement variability in biometric dating: +/- 10 days from 12-20 weeks gestation, +/- 2 weeks from 20-30 weeks gestation, +/- 3 weeks at 30 weeks gestation or more. Other: Not applicable. IMPRESSION: 1. Single living intrauterine with appropriate interval growth. Estimated weight is a t the 24th percentile for gestational age. 2. Normal amniotic fluid index. Reviewed by: Niya Goodman MD, PhD on 07/12/2021 12:53 PM PDT Approved by: Niya Goodman MD, PhD on 07/12/2021 12:53 PM PDT Station ID: [id number]
== END 2021-07-11 18:41 | disposition home or self-care (01) ==
LOC: DI 18:40
PROVIDERS: ATTEND Obstetrics & Gynecology
DX: O24.419 Gestational diabetes mellitus in pregnancy, unspecified control (principal); Z3A.35 35 weeks gestation of pregnancy

== ENCOUNTER 2021-07-25 08:00 | Outpatient (CLI) | payer BC | END 2021-07-25 08:01 | disposition home or self-care (01) | LOC: LAB.WC 08:00 | PROVIDERS: ATTEND Obstetrics & Gynecology | DX: Z36.85 Encounter for antenatal screening for Streptococcus B (principal) | CPT/HCPCS: 87797 ==

== ENCOUNTER 2021-08-10 05:37 | Inpatient (IN) | payer BC ==
--- NOTE | 2021-08-10 07:39 | PROVIDER PROGRESS NOTE ---
- HPI Chief Complaint: Vaginal bleeding (Patient presents with complaints of vaginal bleeding. She reports the bleeding started at 5 AM just after intercourse. She noted bright red blood. She reports some associated abdominal cramping. She denies leakage of fluid. She notes positive movement.) Current : Current EDU 08/11/21 Gestation 39 Weeks and 6 Days 5 Para 0 Vital Signs Temperature 98.4 F 08/10/21 05:53 Heart Rate 88 08/10/21 05:53 Respiratory Rate 20 08/10/21 05:53 Blood Pressure 126/80 08/10/21 05:53 O2 Saturation 98 08/10/21 05:53 Temperature 98.4 F 08/10/21 06:08 Heart Rate 88 08/10/21 06:08 Respiratory Rate 20 08/10/21 06:08 Blood Pressure 126/80 08/10/21 06:08 O2 Saturation 98 08/10/21 05:53 - Exam Generalno acute distress Respiratoryno respiratory distress Abdomen soft nontender gravid GUsterile speculum exam with approximately 30 cc of dark-colored blood noted in the vaginal vault. Cervix visibly closed, no active bleeding noted. - Procedures OB Procedure Performed: NST Diagnosis/Indication for NST: Other (Vaginal bleeding) NST Procedure: NST Procedure Start Date 08/10/21 Start Time 05:50 Stop Time 06:10 Vibroacoustic Stimulation Used No Patient States Movement Yes Service Date of procedure: 08/10/21 Procedure Details: heart rate baseline-120 beats per minutes Moderate variability Accelerations [id number] Decelerations none Contractions Q2-4 mins NST reactive and reassuring - Plan Plan: 35-year-old AB 4 who presents with complaints of vaginal bleeding following intercourse. #Postcoital bleedingpatient with bright red blood following intercourse. Approximately 30 cc of dark-colored blood noted in the vaginal vault. Cervix visibly closed. No active bleeding noted from the cervix on sterile speculum exam. External monitoring reactive and reassuring. Contractions noted every 2 to 4 minutes. We will continue to monitor. Rh+. #- History of low-lying placenta- Posterior placenta without previa noted on last ultrasound 07/19/2021. #Gestational diabetes Failed 1 hour and 3-hour GTT. Currently monitoring at home reportedly with good control.
[2021-08-10] MEDS ORDERED: hydrALAZINE INJ 20 MG/ML VIAL IVP PRN ×2 (09:13)
[2021-08-10] MEDS ORDERED: OXYTOCIN/SODIUM CHLORIDE 500 ML IV PRN (09:13)
[2021-08-10] MEDS ORDERED: fentaNYL 100 MCG/2 ML VIAL IVP PRN (09:13)
[2021-08-10] MEDS ORDERED: CARBOPROST TROMETHAMINE 250 MCG/ML AMP IM PRN (09:13)
[2021-08-10] MEDS ORDERED: METHYLERGONOVINE 0.2 MG/ML VIAL IM PRN (09:13)
[2021-08-10] MEDS ORDERED: miSOPROStoL 200 MCG TABLET PR PRN (09:13)
[2021-08-10] MEDS ORDERED: SODIUM CHLORIDE FLUSH 0.9% 10 ML SYRINGE IVP PRN (09:13)
[2021-08-10] MEDS ORDERED: TRANEXAMIC ACID IN NACL 1,000 MG/100 ML BAG IV PRN (09:13)
[2021-08-10] MEDS ORDERED: NIFEdipine 10 MG CAPSULE PO PRN (09:13)
[2021-08-10] MEDS ORDERED: TERBUTALINE 1 MG/ML VIAL SUBQ PRN (09:13)
[2021-08-10] MEDS ORDERED: LIDOCAINE-MPF 1% 30 ML VIAL ID PRN (09:13)
[2021-08-10] MEDS ORDERED: LABETALOL 20 MG/4 ML SYRINGE IVP PRN ×3 (09:13)
[2021-08-10] MEDS ORDERED: OXYTOCIN 10 UNIT/ML VIAL IM PRN (09:13)
[2021-08-10] MEDS ORDERED: miSOPROStoL 200 MCG TABLET BC PRN (09:13)
--- NOTE | 2021-08-10 09:17 | HISTORY & PHYSICAL EXAMINATION ---
Admit History - Smoking Status: Never smoker - Mother's Labs Mother's Blood Type: positive: O Mother's RH: positive: Positive GBS: positive: Group B Step Negative Rubella Status: positive: Immune - Other Maternal History Other Maternal History: HPI: Patient is a 35-year-old -0-4-0 at 39 weeks 6 days gestation who presented today for vaginal bleeding. She been having intercourse with her partner and shortly after this had a moderate amount of bright red blood. In triage she was noted to have approximate 30 cc of dark blood in the vaginal vault without active bleeding. She was chrissy regularly, approximately 2 to 4 minutes, but these subsequently spaced out. She has good movement. Denies loss of fluid. No QUINTERO/BV or RUQP. Denies nausea and vomiting. Denies urinary urgency or dysuria. After discussion with patient and her partner, she decided to stay for induction of labor. All other symptoms reviewed and were negative except per HPI. Course LMP 11/04/20 gives GRAYSON 08/11/21 US 12/23/20 at 7w1d gives GRAYSON 08/10/21, CWD US on 01/02/21 at 8w5d gives GRAYSON 08/09/21, cwd Vertex by BSUS GDM: -Patient completed 3-hour 82 [id number],181 failed -Profiling stopped by patient. Saw MFM 03/03 for genetic testing discussiong and discuss RPL. -Adderall: Stop when she became -ASA 81 mg per JUAN JOSÉ PT consult ordered; initial exam 05/22 O pos/Rubella imm Genetic testing: cfDNA 46 XY, AFP ordered FAS: 03/03 MFM EFW 75%, 3VC, Placenta posterior low lying, Normal TAHIRA. Prelimi genetics assessment -04/26/21 CL 4.0 EFW 26%ile, 3VC, posterior, FAS wnl -07/11 growth us- 2592g; 24%ile, normal TAHIRA Glucola: 05/22/21 166, 3H GTT failed. TDAP : given 05/24/21 Covid vaccine 06/30/20 07/30/2004/22; Positive infection 07/17 Influenza 01/17/2021 GBS & GC/CT at 36 weeks- 07/24/2021 Negative HSV: Denies Breast pump Rx Given 05/08/2021 MOD:Anticipate pap: 11/25/2017. Due for pap- wants to collect . pp contraception:Undecided. Does not want IUD. PMH Recurrent otitis media, seasonal allergies PSH Left tympanostomy OB History -0-4-0 1. 03/01/2018, 9 weeks, spontaneous 2. 07/11/2017, 4 weeks, spontaneous 3. 06/26/2019, 6 weeks, spontaneous 4. 12/09/2019, 7 weeks, spontaneous . SH Denies tobacco, alcohol, drugs Family History Mother: Asthma Father: Hypertension Maternal grandmother: Melanoma Allergies Vicodin: Vomiting Hydrocodone, vomiting Codeine: Vomiting Medications Aspirin 81 mg daily Famotidine 40 mg daily Physical exam: General: Alert, oriented, no acute distress Head: Normal cephalic atraumatic Eyes: PERRLA, extraocular motions intact. Respiratory: Normal rate of respiration. No accessory muscle use, normal respiratory effort. Cardiovascular: Regular rate and rhythm Abdomen: Gravid, nontender, nondistended Extremities: Normal range of motion Neuro: Oriented x3. Normal movements Psych: Appropriate mood and affect. Normal judgment and insight SVE: FHT: 140 beats minute baseline, moderate variability, accelerations present, no decelerations. Category 1. [place]: Every 2 to 4 minutes Presentation: Cephalic by bedside ultrasound. Plan 35-year-old -0-4-0 at 39 weeks 6 days gestation admitted for induction of labor secondary to vaginal bleeding at term 1. Induction of labor -We will monitor patient for contractions and if these spaced out can consider misoprostol. Otherwise we will place cervical ripening balloon 2. Vaginal bleeding -Appears stable at this time with no active bleeding. May be small amount of c ervical change from her contractions mixed with intercourse. heart tracing is reassuring at this time. See triage note for exam details 3. 39 weeks gestation 4. Gestational diabetes: Type A1 managed with diet and exercise 5. Recurrent loss -Has been taking aspirin this 6. ADHD -Stop Adderall when she became Meds/Allgy - Home Medications Home Medications: Ambulatory Orders Medication Instructions Recorded Confirmed Levothyroxine Sodium [Synthroid] 25 mcg PO QDAC 04/06/18 04/06/18 - Allergies Allergies/Adverse Reactions: Allergies Allergy/AdvReac Type Severity Reaction Status Date / Time codeine Allergy Nausea Verified 04/06/18 18:52 Physical - Abdominal Exam Vital Signs: Temp Pulse Resp BP Pulse Ox 98.4 F 88 20 126/80 98 08/10/21 06:08 08/10/21 06:08 08/10/21 06:08 08/10/21 06:08 08/10/21 05:53
[2021-08-10] MEDS ORDERED: miSOPROStoL 100 MCG TABLET BC SCH (10:00)
[2021-08-10 10:12] LABS: BASOPHILS % (AUTO) 0.1 %; EOSINOPHILS % (AUTO) 0.4 %; HCT - HEMATOCRIT 34.2 % (37.0-47.0); LYMPHOCYTES # (AUTO) 1.5 10^3/uL (1.5-3.5); LYMPHOCYTES % (AUTO) 17.6 %; MEAN CORPUSCULAR HEMOGLOBIN 33.6 pg (27.0-31.0); MEAN CORPUSCULAR HGB CONC 35.1 g/dL (32.0-36.0); MEAN CORPUSCULAR VOLUME 95.8 fL (81.0-99.0); MEAN PLATELET VOLUME 9.5 fL (7.9-10.8); MONOCYTES # (AUTO) 0.8 10^3/uL (0.0-1.0); MONOCYTES % (AUTO) 9.4 %; NEUTROPHILS % (AUTO) 72.1 %; PLT - PLATELET COUNT 239 10^3/uL (130-450); RED BLOOD COUNT 3.57 10^6/uL (4.20-5.40); RED CELL DISTRIBUTION WIDTH 12.8 % (12.0-15.0); WHITE BLOOD COUNT 8.4 x10^3/uL (4.8-10.8)
[2021-08-10 10:25] LABS: ALBUMIN 2.7 g/dL (3.2-5.5); ALBUMIN/GLOBULIN RATIO 0.8 (1.0-2.2); BILIRUBIN,TOTAL 0.3 mg/dL (0.2-1.0); CALCIUM 8.7 mg/dL (8.5-10.3); CREATININE 0.5 mg/dL (0.4-1.0); POTASSIUM 3.6 mmol/L (3.5-5.0); TOTAL PROTEIN 5.9 g/dL (6.7-8.2)
--- NOTE | 2021-08-10 13:40 | PROVIDER PROGRESS NOTE ---
Labor Progress Note - Uterine Monitoring Uterine Monitoring Mode: positive: External toco Contraction Frequency (min/apart): 3-5 Contraction Intensity: positive: Mild Uterine Resting Tone: positive: Soft - Monitoring Monitor Mode: positive: External ultrasound Heart Rate Baseline: 135 Heart Rate Variability: positive: Moderate (6-25 bmp) Accelerations: positive: Present, 15x15 Decelerations: positive: None Strip Review: positive: Category I - Labor Progress Note Labor Progress Note/Additional Text: Good arteries and category 1. Chrissy regularly, although mild. Was chrissy too frequently earlier for misoprostol, so cervical ripening was placed, with 40/40 mL. Can increase to 60 mL internally if if tolerating pain. If contractions spaced out, start oxytocin.
--- NOTE | 2021-08-11 00:52 | PROVIDER PROGRESS NOTE ---
Labor Progress Note - Uterine Monitoring Uterine Monitoring Mode: positive: External toco Contraction Frequency (min/apart): Irregular Contraction Intensity: positive: Mild Uterine Resting Tone: positive: Soft - Monitoring Monitor Mode: positive: External ultrasound Heart Rate Baseline: 140 Heart Rate Variability: positive: Moderate (6-25 bmp) Accelerations: positive: Present, 15x15 Decelerations: positive: None Strip Review: positive: Category I - Vaginal Exam Dilation (in cm): 5 Effacement (%): 60 Station: -2 Cervical Position: Midposition - Labor Progress Note Labor Progress Note/Additional Text: Cervical ripening balloon was expelled at 2200. Patient had contractions that spaced out after balloon removal. heart tracing remains category 1. Cervical exam showed 5 cm, 60% effaced, -2 station with good engagement of head. Amniotomy was performed with a moderate amount of clear fluid. Oxytocin was started for hypotonic uterine contractions.
[2021-08-11] MEDS ORDERED: OXYTOCIN/SODIUM CHLORIDE 500 ML IV SCH (01:00)
[2021-08-11] MEDS: LACTATED RINGERS 1,000 ML IV SCH ×3 (01:21→11:07)
[2021-08-11] MEDS ORDERED: FAMOTIDINE 20 MG TABLET PO SCH (02:00)
[2021-08-11] MEDS ORDERED: ROPIVACAINE 0.2% 200 MG/100 ML BAG EP ONE (03:14)
[2021-08-11] MEDS ORDERED: NALOXONE 0.4 MG/ML VIAL IVP PRN ×3 (05:14→10:06)
[2021-08-11] MEDS ORDERED: METOCLOPRAMIDE 10 MG/2 ML VIAL IVP PRN (05:14)
[2021-08-11] MEDS ORDERED: ePHEDrine 50 MG/ML VIAL IVP PRN (05:14)
[2021-08-11] MEDS ORDERED: NALBUPHINE 10 MG/ML AMP IVP PRN (05:14)
[2021-08-11] MEDS ORDERED: ROPIVACAINE 0.2% 200 MG/100 ML BAG EP PRN (05:14)
[2021-08-11] MEDS ORDERED: diphenhydrAMINE INJ 50 MG/ML VIAL IVP PRN (05:14)
[2021-08-11] MEDS ORDERED: ONDANSETRON 4 MG/2 ML VIAL IVP PRN ×2 (05:14→10:06)
--- NOTE | 2021-08-11 05:18 | ANESTHESIA ---
Pre-Anesthesia VS, & Labs - Diagnosis active labor - Procedure labor epidural Vital Signs: Temp Pulse Resp BP Pulse Ox 36.8 C 88 20 126/80 98 08/10/21 13:29 08/10/21 06:08 08/10/21 06:08 08/10/21 06:08 08/10/21 05:53 Height: 5 ft 3 in Weight (kg): 73.936 kg Body Mass Index: 28.8 BMI Classification: Overweight - NPO >8 hours - Is Patient ?: Yes - Lab Results Current Lab Results: Laboratory Tests 08/10/21 09:53: Sodium 131 L, Potassium 3.6, Chloride 102, Carbon Dioxide 20 L, Anion Gap 9.0, BUN 13, Creatinine 0.5, Estimated GFR (MDRD) 142, Glucose 114 H, Calcium 8.7, Total Bilirubin 0.3, AST 21, ALT 13, Alkaline Phosphatase 160 H, Total Protein 5.9 L, Albumin 2.7 L, Globulin 3.2, Albumin/Globulin Ratio 0.8 L 08/10/21 09:53: WBC 8.4, RBC 3.57 L, Hgb 12.0, Hct 34.2 L, MCV 95.8, MCH 33.6 H, MCHC 35.1, RDW 12.8, Plt Count 239, MPV 9.5, Neut # (Auto) 6.0, Lymph # (Auto) 1.5, [place] # (Auto) 0.8, Eos # (Auto) 0.0, Baso # (Auto) 0.0, Absolute Nucleated RBC 0.00, Nucleated RBC % 0.0 08/10/21 09:53: Blood Type O POSITIVE, Antibody Screen NEGATIVE Fish Bones: 08/10/21 09:53 08/10/21 09:53 Home Medications and Allergies Active Medications Carboprost Tromethamine (Carboprost Tromethamine 250 Mcg/Ml Amp) 250 mcg IM .ONCE PRN PRN Reason: Hemorrhage Famotidine (Famotidine 20 Mg Tablet) 40 mg PO ONCE OTTO Stop: 08/12/21 01:59 Last Admin: 08/11/21 01:48 Dose: 40 mg Fentanyl (Fentanyl 100 Mcg/2 Ml Vial) 50 mcg IVP Q1H PRN PRN Reason: Severe Pain (score 7-10) Hydralazine HCl (Hydralazine Inj 20 Mg/Ml Vial) 5 - 20 mg IVP Q20M PRN; Protocol PRN Reason: SBP> or= 160 OR DBP> or= 110 Hydralazine HCl (Hydralazine Inj 20 Mg/Ml Vial) 10 mg IVP .ONCE PRN; Protocol PRN Reason: SBP> or= 160 OR DBP> or= 110 Oxytocin/Sodium Chloride (Pitocin/Sodium Chloride) 500 mls @ 999 mls/hr IV PRN PRN; Protocol PRN Reason: POST- HEMORR PREVENTION Tranexamic Acid (Tranexamic 1,000 Mg/100ml-Nacl) 1,000 mg in 100 mls @ 600 mls/hr IV Q30M PRN PRN Reason: EBL >1200mL and within 3hr Oxytocin/Sodium Chloride (Pitocin/Sodium Chloride) 500 mls @ 1 mls/hr IV TITR OTTO; Protocol Last Admin: 08/11/21 01:20 Dose: 2 milliunit/min, 2 mls/hr Lactated Ringer's (Lr) 1,000 mls @ 125 mls/hr IV .Q8H OTTO Last Admin: 08/11/21 01:21 Dose: 125 mls/hr Labetalol HCl (Labetalol 20 Mg/4 Ml Syringe) 20 - 80 mg IVP Q10M PRN; Protocol PRN Reason: SBP> or= 160 OR DBP> or= 110 Labetalol HCl (Labetalol 20 Mg/4 Ml Syringe) 20 mg IVP .ONCE PRN; Protocol PRN Reason: SBP> or= 160 OR DBP> or= 110 Labetalol HCl (Labetalol 20 Mg/4 Ml Syringe) 20 - 40 mg IVP Q10M PRN; Protocol PRN Reason: SBP> or= 160 OR DBP> or= 110 Lidocaine HCl (Lidocaine-Mpf 1% 30 Ml Vial) 30 ml ID ONCE PRN PRN Reason: PERINEAL REPAIR Stop: 08/11/21 09:14 Methylergonovine Maleate (Methylergonovine 0.2 Mg/Ml Vial) 0.2 mg IM .ONCE PRN PRN Reason: Hemorrhage Misoprostol (Misoprostol 200 Mcg Tablet) 600 mcg BC .ONCE PRN PRN Reason: Hemorrhage Misoprostol (Misoprostol 200 Mcg Tablet) 800 mcg GA .ONCE PRN PRN Reason: Hemorrhage Misoprostol (Misoprostol 100 Mcg Tablet) 25 mcg BC Q4H OTTO Nifedipine (Nifedipine 10 Mg Capsule) 10 - 20 mg PO Q20M PRN; Protocol PRN Reason: SBP> or= 160 OR DBP> or= 110 Oxytocin (Oxytocin 10 Unit/Ml Vial) 10 unit IM .ONCE PRN PRN Reason: Step One if no IV access. Sodium Chloride (Sodium Chloride Flush 0.9% 10 Ml Syringe) 10 ml IVP PRN PRN PRN Reason: NEEDED PER PROVIDER ORDERS Sodium Chloride (Sodium Chloride Flush 0.9% 10 Ml Syringe) 10 ml IVP Q8H OTTO Terbutaline Sulfate (Terbutaline 1 Mg/Ml Vial) 0.25 mg SUBQ .ONCE PRN PRN Reason: Tachystole Levothyroxine Sodium [Synthroid] 25 mcg PO QDAC 04/06/18 Allergies/Adverse Reactions: Allergies Allergy/AdvReac Type Severity Reaction Status Date / Time codeine Allergy Nausea Verified 04/06/18 18:52 hydrocodone AdvReac Nausea Verified 08/10/21 12:37 Anes History & Medical History - Anesthetic History Anesthesia Complications: reports: No previous complications Family history of Anesthesia Complications: Denies Family history of Malignant Hyperthermia: Denies - Medical History Cardiovascular: reports: None Smoking Status: Former smoker Exam General: Alert, Oriented x3, Cooperative Dental: WNL Mouth Openin Fingerbreadth Neck Mobility: Normal Mallampati classification: I Thyromental Distance: 4-6 cm Respiratory: Lungs clear Cardiovascular: Regular rate Plan Anesthesia Type: Epidural Consent for Procedure(s) Verified and Reviewed: Yes Code Status: Attempt Resuscitation ASA classification: 2-Mild systemic disease Is this case an emergency?: No
--- NOTE | 2021-08-11 05:19 | ANESTHESIA PROCEDURE NOTE ---
Anesthesia Epidural Template - Patient Report Patient Reports: positive: Pain controlled - Plan Plan: positive: Continue current management
--- NOTE | 2021-08-11 08:39 | PROVIDER PROGRESS NOTE ---
Labor Progress Note - Uterine Monitoring Uterine Monitoring Mode: positive: External toco Contraction Frequency (min/apart): 2-5 Contraction Intensity: positive: Moderate to strong Uterine Resting Tone: positive: Soft - Monitoring Monitor Mode: positive: External ultrasound Heart Rate Baseline: 150 Heart Rate Variability: positive: Minimal (0-5 bpm) Accelerations: positive: Present, 10x10 (=/32 wks) Decelerations: positive: Late, Recurrent (>50% x20 min) Strip Review: positive: Category II - Vaginal Exam Dilation (in cm): 7 Effacement (%): 90 Station: -1 Cervical Position: Midposition - Labor Progress Note Labor Progress Note/Additional Text: Patient began having repetitive late decelerations. We have mild success with positional changes and readjusting, however this returned. Oxytocin was discontinued. Patient had short time of relief, while internal monitors were placed, patient had prolonged decelerations to the 60s. Patient was previously counseled on the risk, benefits. and alternatives of section including infection, damage to other organs, bleeding. She did agree to blood transfusion should she require one. At this point, she wanted to get baby out safely and agreed to proceed with section.
[2021-08-11] MEDS ORDERED: LIDOCAINE MPF 2%-EPI 1:200000 20 ML VIAL ONE (08:59)
[2021-08-11] MEDS ORDERED: AZITHROMYCIN INJ 500 MG in SODIUM CHLORIDE 0.9% 250 ML IV SCH (09:00)
[2021-08-11] MEDS ORDERED: miSOPROStoL 200 MCG TABLET ONE (09:03)
[2021-08-11] MEDS ORDERED: CARBOPROST TROMETHAMINE 250 MCG/ML AMP IM ONE (09:03)
[2021-08-11] MEDS ORDERED: METHYLERGONOVINE 0.2 MG/ML VIAL ONE (09:03)
[2021-08-11] MEDS ORDERED: DEXAMETHASONE 4 MG/ML VIAL ONE (09:33)
[2021-08-11] MEDS ORDERED: ONDANSETRON 4 MG/2 ML VIAL ONE (09:33)
[2021-08-11] MEDS ORDERED: NIFEdipine 10 MG CAPSULE PO PRN (09:57)
[2021-08-11] MEDS ORDERED: hydrALAZINE INJ 20 MG/ML VIAL IVP PRN ×2 (09:57)
[2021-08-11] MEDS ORDERED: OXYTOCIN/SODIUM CHLORIDE 500 ML IV PRN (09:57)
[2021-08-11] MEDS ORDERED: oxyCODONE 5 MG TABLET PO PRN (09:57)
[2021-08-11] MEDS ORDERED: LABETALOL 20 MG/4 ML SYRINGE IVP PRN ×3 (09:57)
[2021-08-11] MEDS ORDERED: KETOROLAC 30 MG/ML VIAL ONE (09:59)
[2021-08-11] MEDS ORDERED: HYDROmorphone 0.5 MG/0.5 ML SYRINGE IVP PRN (10:06)
[2021-08-11] MEDS ORDERED: fentaNYL 100 MCG/2 ML VIAL IVP PRN (10:06)
[2021-08-11] MEDS ORDERED: MORPHINE 2 MG/ML CARPUJECT IVP PRN (10:06)
[2021-08-11] MEDS ORDERED: ATROPINE ABBOJECT 1 MG/10 ML SYRINGE IVP PRN (10:06)
--- NOTE | 2021-08-11 10:22 | OPERATIVE REPORT ---
Operative Report - General Admit Date: 08/10/21 Planned Procedure: Primary low-transverse section Pre-Op Diagnosis: Category 2 tracing remote from delivery, 40 weeks gestation Procedure Performed: Primary low transverse section Post Op Diagnosis: Same, delivered - Procedure Note Primary Surgeon: Saqib Marie MD Secondary Surgeon: Brayden Johnson MD Anesthesia Provider: Mati Hughes CRNA Anesthesia Technique: Epidural Pathology: None IV Fluids (mL): 500 Estimated Blood Loss (mL): 500 Urine Output (mL): 400 Complications: None - Other Other Information/Narrative: Patient presented at 39 weeks 6 days gestation with vaginal bleeding and contractions. Fetus was category 1 and bleeding stopped. She did continue to contract frequently so were not able to start misoprostol. She had a cervical ripening balloon placed and was left in place for approximately 11 hours before being expelled. She had oxytocin was continued overnight. This morning, she began having repetitive late decelerations nonresponsive to any changes. Oxytocin was discontinued. variability was never absent. We attempted to place a scalp electrode and IUPC, but during this she began having prolonged decelerations to the 60s and we discussed section. section was recommended. Risks, benefits and alternatives were discussed including but not limited to infection, bleeding that may require blood products or hysterectomy for life saving measures, injury to surrounding organs including but not limited to bowel, bladder, ureters, tubes and ovaries and/or the baby. Should injury occur it could require longer/additional surgery to repair. The patient stated understanding and desired to proceed. All questions were answered posed by patient. Prior to being taken to the OR, to grams of cefazolin IV was administered as well as 500 mg azithromycin IV. The patient was taken to the operating room wh ere regional anesthesia was found to be adequate. She was then prepared and draped in the usual sterile fashion in the dorsal supine position with a leftward tilt displacing the uterus. Mora was draining to gravity. SCDs were on bilateral lower extremities. A pfannenstiel skin incision was then made with the scalpel and carried through to the underlying layer of fascia. The fascia was incised in the midline and the incision extended laterally with the Metcalf scissors. The superior aspect of the facial incision was then grasped with the Miguel Ángel clamps, elevated and the underlying rectus muscles dissected off sharply. Attention was then turned to the inferior aspect of this incision which in a similar fashion was grasped, elevated with the Miguel Ángel clamps and the rectus muscle dissected off sharply. The rectus muscles were in the midline. The peritoneum identified, grasped with the pick-ups and entered sharply with the Metzenbaum scissors. The peritoneal incision was then extended superiorly and inferiorly with good visualization of the bladder. An Edwin retractor was then placed in the abdomen with good visualization of the uterus. The vesicouterine peritoneum was identified, grasped with the pick-ups, and entered sharply with Metzenbaum scissors. This incision was then extended laterally and the bladder flap created digitally. The lower uterine segment was identified and incised in a transverse fashion with the scalpel. The uterine incision was then extended bluntly laterally. There is a small amount of membranes present and rupture showed a small amount of remaining clear amniotic fluid. The fetus was in a cephalic presentation. The infants head delivered atraumatically. The anterior shoulders were delivered followed by the posterior shoulders then the remainder of the body. A shoulder cord was noted at time of delivery. The infants mouth and nose were bulb suctioned. The umbilical cord was clamped times two and cut. The was handed to the pediatric team. weight is pending at this time. Apgars of 9 at 1 minute and 9 at 5 minutes. Cord blood gases were obtained. The placenta was removed with gentle traction. 20 units of oxytocin were added to IVF and allowed to run freely. The uterus was exteriorized and cleared of all clots and debris. The uterine incision was inspected and found to be without any extensions and was repaired with 0 chromic in a running, locked fashion. Upon inspection, the repaired hysterotomy was found to be hemostatic. The uterus was firm and returned to the abdomen. The gutters were cleared of all clots and debris. The fascia was reapproximated with 0 PDS in a running fashion. The skin was closed in a subcuticular fashion with 4-0 Monocryl. The patient tolerated the procedure well. Sponge, lap and needle counts were correct times three. The patient was taken to the recovery room in stable condition. I appreciate the assistance of Dr. Johnson during this procedure, and her assistance in retraction, visualization, dissection, and overall assistance during the case were instrumental to the patient's wellbeing.
--- NOTE | 2021-08-11 10:32 | ANESTHESIA POST OP EVALUATION ---
Anesthesia Post Eval - Post Anesthesia Eval Vitals: Last Vital Signs Temp 36.8 C 08/10/21 13:29 Pulse 88 08/10/21 06:08 Resp 20 08/10/21 06:08 BP 126/80 08/10/21 06:08 Pulse Ox 98 08/10/21 05:53 CV Function Including HR & BP: Stable Pain Control: Satisfactory Nausea & Vomiting: Negative Mental Status: Baseline Respiratory Status: Airway Patent Hydration Status: Satisfactory Anesthesia Complications: None
[2021-08-11] MEDS ORDERED: LACTATED RINGERS 1,000 ML IV SCH (11:00)
[2021-08-11] MEDS ORDERED: KETOROLAC 30 MG/ML VIAL IVP SCH (12:00)
[2021-08-11] MEDS: ACETAMINOPHEN 500 MG TABLET PO SCH ×2 (12:30→20:26)
[2021-08-11] MEDS: KETOROLAC 30 MG/ML VIAL IVP SCH ×2 (15:57→22:51)
[2021-08-11] MEDS ORDERED: DOCUSATE SODIUM 100 MG CAPSULE PO SCH (21:00)
[2021-08-12] MEDS: KETOROLAC 30 MG/ML VIAL IVP SCH ×2 (04:44→10:47)
[2021-08-12] MEDS: ACETAMINOPHEN 500 MG TABLET PO SCH ×4 (04:45→21:11)
[2021-08-12 06:17] LABS: HCT - HEMATOCRIT 31.5 % (37.0-47.0); HGB - HEMOGLOBIN 10.8 g/dL (12.0-16.0); MEAN CORPUSCULAR HEMOGLOBIN 33.4 pg (27.0-31.0); MEAN CORPUSCULAR HGB CONC 34.3 g/dL (32.0-36.0); MEAN CORPUSCULAR VOLUME 97.5 fL (81.0-99.0); MEAN PLATELET VOLUME 9.4 fL (7.9-10.8); RED BLOOD COUNT 3.23 10^6/uL (4.20-5.40); RED CELL DISTRIBUTION WIDTH 13.1 % (12.0-15.0); WHITE BLOOD COUNT 15.6 x10^3/uL (4.8-10.8)
[2021-08-12] MEDS: SODIUM CHLORIDE FLUSH 0.9% 10 ML SYRINGE IVP SCH ×2 (08:54→08:55)
[2021-08-12] MEDS: LACTATED RINGERS 1,000 ML IV SCH (08:55)
[2021-08-12] MEDS: IBUPROFEN 600 MG TABLET PO SCH ×3 (10:47→22:03)
--- NOTE | 2021-08-12 10:51 | PROVIDER PROGRESS NOTE ---
Subjective - Prog Note Date Prog Note Date: 08/12/21 Prog Note Time: 10:49 - Subjective Subjective: Patient has no complaints. Her pain is controlled with pain medications. She is ambulating without difficulty. She reports minimal vaginal bleeding.She is tolerating p.o. intake. Current Medications - Current Medications Current Medications: Active Medications Generic Name Dose Route Start Last Admin Trade Name Freq PRN Reason Stop Dose Admin Diphenhydramine HCl 12.5 - 25 mg 08/11/21 05:14 Diphenhydramine Inj 50 Mg/Ml Vial IVP Q6HR PRN ITCHING Ephedrine Sulfate 5 mg 08/11/21 05:14 Ephedrine 50 Mg/Ml Vial IVP Q5M PRN For SBP<100;give until SBP>100 Ropivacaine 200 mg in 100 mls @ 0 mls/hr 08/11/21 05:14 Naropin 0.2% EP PRN PRN PAIN Protocol Per Protocol Ibuprofen 600 mg 08/12/21 10:45 08/12/21 10:47 Ibuprofen 600 Mg Tablet PO 600 mg Q6H OTTO Administration Metoclopramide HCl 10 mg 08/11/21 05:14 Metoclopramide 10 Mg/2 Ml Vial IVP Q6HR PRN Nausea / Vomiting Nalbuphine HCl 2.5 - 5 mg 08/11/21 05:14 Nalbuphine 10 Mg/Ml Amp IVP Q4H PRN ITCHING Naloxone HCl 0.1 mg 08/11/21 05:14 Naloxone 0.4 Mg/Ml Vial IVP Q2M PRN RR<8 Ondansetron HCl 4 mg 08/11/21 05:14 08/11/21 07:52 Ondansetron 4 Mg/2 Ml Vial IVP 4 mg Q6HR PRN Administration Nausea / Vomiting Levothyroxine Sodium [Synthroid] 25 mcg PO QDAC 04/06/18 Objective - Vital Signs/Intake & Output Reviewed Vital Signs: Yes Vital Signs: Vital Signs x48h Temp Pulse Resp BP Pulse Ox 08/12/21 04:35 98.1 F 74 18 122/72 100 Intake & Output: Intake & Output 08/09/21 08/10/21 08/11/21 08/12/21 23:59 23:59 23:59 23:59 Intake Total 2214 350 Output Total 2350 750 Balance -136 -400 - Objective General Appearance: positive: No acute distress Respiratory: positive: No respiratory distress Abdomen: positive: No distention, Tenderness (appropriate for post operative state). negative: Guarding, Rebound - Lab Results Fish Bones: 08/12/21 06:09 08/10/21 09:53 Other Labs: Lab Results x24hrs 08/12/21 Range/Units 06:09 WBC 15.6 H (4.8-10.8) x10^3/uL RBC 3.23 L (4.20-5.40) 10^6/uL Hgb 10.8 L (12.0-16.0) g/dL Hct 31.5 L (37.0-47.0) % MCV 97.5 (81.0-99.0) fL MCH 33.4 H (27.0-31.0) pg MCHC 34.3 (32.0-36.0) g/dL RDW 13.1 (12.0-15.0) % Plt Count 199 (130-450) 10^3/uL MPV 9.4 (7.9-10.8) fL Assessment/Plan - Problem List (1) S/P section Impression: POD 1 s/p primary section for Category 2 tracing. Meeting postoperative milestones. Pain well controlled. Labs within normal limits. Vital signs stable. Anticipate discharge on postop day 2.
[2021-08-12] MEDS ORDERED: oxyCODONE 5 MG TABLET PO PRN (12:46)
[2021-08-12] MEDS ORDERED: ONDANSETRON ODT 4 MG TABLET TL PRN (12:47)
[2021-08-12] MEDS: DOCUSATE SODIUM 100 MG CAPSULE PO SCH (13:01)
[2021-08-12] MEDS ORDERED: IBUPROFEN 600 MG TABLET PO SCH (16:00)
[2021-08-13] MEDS: IBUPROFEN 600 MG TABLET PO SCH ×2 (04:13→09:43)
[2021-08-13] MEDS: ACETAMINOPHEN 500 MG TABLET PO SCH ×2 (05:10→14:56)
[2021-08-13 08:49] VITALS: BP 105/71
[2021-08-13] MEDS: DOCUSATE SODIUM 100 MG CAPSULE PO SCH (09:43)
--- NOTE | 2021-08-13 14:28 | Discharge Plan ---
Discharge Plan Problem Reviewed?: Yes Disposition: Home, Self Care Condition: Stable Prescriptions: oxyCODONE [Roxicodone] 5 mg PO Q4HR PRN #10 tablet PRN Reason: Pain Ondansetron Odt [Zofran Odt] 4 mg PO Q4HR PRN #10 tablet PRN Reason: Nausea / Vomiting Docusate Sodium 100Mg Capsule [Colace 100Mg Capsule] 100 mg PO BID PRN #30 tab PRN Reason: Pain Ibuprofen [Motrin] 600 mg PO Q6H #30 tablet Diet: Regular Activity Restrictions: Additional Comments (Pelvic rest for 6 weeks) Shower Restrictions: No Driving Restrictions: Yes (While taking narcotics ) Instruction Topics: Additional Instructions or Follow Up instructions: Follow-up for headaches vision changes or abdominal pain. Return to ED if soak ing more than 2 pads in 1 hour. Wash incision with soap and water and pat dry with towel. Return to ED for increased redness, purulent drainage or increasing pain at the incision site. No Smoking: If you smoke, Please STOP! Call for help. Follow-up with: Saqib Marie MD [Provider Admit Priv/Credential] - 1 Week
--- NOTE | 2021-08-13 14:36 | DISCHARGE SUMMARY ---
Discharge Summary Admit Date: 08/13/21 Discharge Date: 08/13/21 Discharging Provider: Brayden Johnson MD Condition at Discharge: Stable Discharge Disposition: 01 Home, Self Care - DIAGNOSES Admission Diagnoses: Induction of Labor Discharge Diagnoses with Status of Each Condition: s/p ceserean section - HOSPITAL COURSE Hospital Course: 35-year-old AB 4 post operative day 2 status post primary section. The patient presented at 39 weeks with complaints of vaginal bleeding. She was kept for induction of labor. Her labor was complicated by a persistent category 2 tracing. She underwent a primary low-transverse section. She met postoperative milestones and was stable for discharge on postoperative day 2. - ALLERGIES Allergies/Adverse Reactions: Allergies Allergy/AdvReac Type Severity Reaction Status Date / Time codeine Allergy Nausea Verified 08/11/21 09:02 hydrocodone AdvReac Nausea Verified 08/11/21 09:02 - MEDICATIONS Home Medications: Ambulatory Orders Medication Instructions Recorded Confirmed Levothyroxine Sodium [Synthroid] 25 mcg PO QDAC 04/06/18 04/06/18 Docusate Sodium 100Mg Capsule 100 mg PO BID PRN #30 tab 08/13/21 [Colace 100Mg Capsule] Ibuprofen [Motrin] 600 mg PO Q6H #30 tablet 08/13/21 Ondansetron Odt [Zofran Odt] 4 mg PO Q4HR PRN #10 tablet 08/13/21 oxyCODONE [Roxicodone] 5 mg PO Q4HR PRN #10 tablet 08/13/21 - PHYSICAL EXAM AT DISCHARGE General Appearance: positive: No acute distress Respiratory: positive: No respiratory distress Abdomen: positive: No distention, Tenderness (Appropriate for postoperative state), Other (fundus firm ) - LABS Result Diagrams: 08/12/21 06:09 08/10/21 09:53 - FOLLOW UP Follow Up: Dr. Marie in 1 week
--- NOTE | 2021-08-13 16:08 | Labor Flowsheet ---
Labor Flowsheet Datetime Report Generated by CPN: 08/13/2021 16:08 Datetime: 08/11/2021 13:30 Stage of : Recovery VITAL SIGNS NBP Sys/Janelle/Mean (mmHg): 126 : 64 Pulse: 72 Respirations: 18 SpO2 (%): 100 Datetime: 08/11/2021 09:00 UTERINE ACTIVITY Monitor Mode: External Frequency (min): 1-4 Quality: Moderate Duration (sec): 40-110 Pattern: Normal: <= 5 Contractions in 10 Minutes Resting Tone (Palpate): Relaxed ASSESSMENT A Monitor Mode: External US FHR Baseline Rate : 145 Variability: Moderate 6-25 bpm Accelerations: None Decelerations: Late Category: Category II Patient Care Comments: monitors off for transport to OR Datetime: 08/11/2021 08:59 LaborFlag: Antepartum Datetime: 08/11/2021 08:57 : 74 Datetime: 08/11/2021 08:30 Contraction Comments: RN @ bedside w/provider for placement of IUPC and FSE Datetime: 08/11/2021 08:27 Communication Comments: C/S called by Dr. Marie Datetime: 08/11/2021 08:24 Monitor Interventions for FHR: FSE Applied Datetime: 08/11/2021 08:22 Monitor Interventions for UA: IUPC Inserted Datetime: 08/11/2021 08:15 Actions for Decelerations: Side to Side Comments: RN @ bedside for repositioning Datetime: 08/11/2021 08:05 MEDICATIONS Pitocin (milliunits): Discontinued Datetime: 08/11/2021 08:00 Patient Position/Activity: Left Lateral Datetime: 08/11/2021 07:52 Antiemetics/Antacids: Zofran (mg) @ 4 Datetime: 08/11/2021 07:47 Exam by: Dr. Frank Datetime: 08/11/2021 06:39 VAGINAL EXAM Dilatation (cm): 6.0 Effacement (%): 90 Station: -2 Datetime: 08/11/2021 06:07 PATIENT CARE IV/Blood Work: IV Bag Number @ 2 Datetime: 08/11/2021 06:03 Temperature (C): 37.1 Datetime: 08/11/2021 05:37 Medication Comments: restart picotcin at 2 per reassuring fhr Datetime: 08/11/2021 04:35 COMMUNICATION Communication: Call/Page Placed to Provider Notification Reason: Status; Labor Status Datetime: 08/11/2021 04:11 I/O Interventions: Mora Cath Inserted Datetime: 08/11/2021 03:39 ANESTHESIA Anesthesia Plans: Epidural Epidural Procedure: Loading Dose Datetime: 08/11/2021 03:27 Epidural Positioning: Sitting Datetime: 08/11/2021 03:10 Provider Notified (Name): Milton, INTERMEDIATE DESIGNER bedside Datetime: 08/11/2021 02:22 Hygiene: Underpad Changed Datetime: 08/11/2021 00:38 Membrane Status: Ruptured Membranes Rupture Method: Artificial Amniotic Fluid Color: Clear Amniotic Fluid Amount: Moderate Datetime: 08/10/2021 22:30 FHR Baseline Changes: No Baseline Change Datetime: 08/10/2021 22:03 Vaginal Bleeding: None Datetime: 08/10/2021 21:58 Cervical Ripening Agents: Mora Balloon Cervical Ripening Agents Other: Mora balloon out while pt. in bathroom Datetime: 08/10/2021 17:32 Provider Reviewed Strip: Yes
== END 2021-08-13 15:30 | disposition home or self-care (01) | DRG 788 ==
LOC: WFO 05:37 → FBP 05:50 → WFO 09:12 → FBP 09:13 → OBSVTOIN 08-11 15:38
PROVIDERS: ADMIT Obstetrics & Gynecology; ATTEND Obstetrics & Gynecology
PROC: 10D00Z1 Extraction of Products of Conception, Low, Open Approach (ICD-10-PCS; principal; 2021-08-11 08:45)
DX: O99.892 Other specified diseases and conditions complicating childbirth (principal); N93.0 Postcoital and contact bleeding; O24.420 Gestational diabetes mellitus in childbirth, diet controlled; Z3A.39 39 weeks gestation of pregnancy; Z37.0 Single live birth; O99.344 Other mental disorders complicating childbirth; F90.9 Attention-deficit hyperactivity disorder, unspecified type; O76 Abnormality in fetal heart rate and rhythm complicating labor and delivery
CPT/HCPCS: 36415; 59025; 80053; 85025; 85027; 86850; 86900; 86901; 99214; A9270; G0378; J7040; J7120; 96361; 96365; 96375